=== PATIENT | female | born 1995 | race Caucasian/White ===

== ENCOUNTER 2021-10-14 07:46 | Emergency (ER) | payer OTHER ==
[~2021-10-14 07:46] MED LIST: MEDROL 4MG DOSEP4 MG PO; ZPAK PO
[2021-10-14 08:42] LABS: HCT 44.4 % (37.0-47.0); HGB 14.5 g/dl (12.5-16.0); MCH 28.7 pg (25.0-31.0); MCHC 32.7 g/dL (32.0-36.0); MCV 87.9 fL (78.0-100.0); MPV 11.7 fL (6.0-9.5); RBC 5.05 M/uL (4.20-5.40); RDW 12.8 % (11.5-14.0); WBC 8.8 K/uL (4.0-10.5)
[2021-10-14 09:04] LABS: BUN 11 mg/dL (7-18); BUN/CREAT RATIO (CALC) 17.7 RATIO; CHLORIDE 105 mmol/L (98-107); CO2 (BICARBONATE) 23 mmol/L (21-32); CREATININE 0.62 mg/dL (0.51-0.95); GLUCOSE 87 mg/dL (74-106); POTASSIUM 4.3 mmol/L (3.5-5.1)
[2021-10-14] MEDS ORDERED: ONDANSETRON ODT4 MG PO (10:12)
[2021-10-14] MEDS ORDERED: ZPAK PO (10:23)
[2021-10-14] MEDS ORDERED: MEDROL 4MG DOSEP4 MG PO (10:23)
[2021-10-14] MEDS ORDERED: VENTOLIN HFA18 GM INH (10:23)
== END 2021-10-14 10:39 | disposition home or self-care (01) ==
LOC: FER 07:46
PROVIDERS: Emergency Medicine
DX: U07.1 COVID-19 (principal); F17.200 Nicotine dependence, unspecified, uncomplicated
CPT/HCPCS: 36415; 80048; 84484; 85379; J1885; U0002